=== PATIENT | male | born 1985 | race Caucasian/White ===

== ENCOUNTER → 2025-08-30 08:22 | Outpatient (CLI) | payer OTHER, SELFPAY ==
--- NOTE | 2025-08-30 08:25 | DI.CT.S_ITS ---
PROCEDURE: CT SOFT TISSUE NECK W CON INDICATIONS: Dysphagia TECHNIQUE: After the administration of intravenous contrast, 3.0 mm axial sections acquired from the sella to the aortic arch. Additional oblique axial 3.0 mm sections acquired through the pharynx. 3 mm thick coronal and sagittal reformats were generated. For radiation dose reduction, the following was used: automated exposure control. COMPARISON: None. FINDINGS: Skull Base: The visualized intracranial contents, skull, and orbits are unremarkable. 3 cm left maxillary sinus retention cyst Pharynx and Larynx: The nasopharyngeal airway is patent and midline. Parapharyngeal soft tissues including palatine tonsils and base of the tongue are normal. Retropharyngeal space unremarkable. Normal appearance of the false and true vocal cords. Muscles and Fascial Planes: Fascial planes are well maintained. No abscess or mass lesion. Lymph Nodes: Prominent nonenlarged deep cervical lymph nodes measure up to 7 mm short axis Vasculature: Unremarkable. Submandibular and Parotid Glands: Normal in size and attenuation. Thyroid: Unremarkable. No enlarged or calcified nodules. Bones: No acute fracture. No osteolytic or blastic lesion is evident. Normal bone mineralization. Lung Apices: The visualized lung apices are clear. IMPRESSION: Prominent but nonenlarged bilateral deep cervical lymph nodes. No adenopathy. Left maxillary sinus retention cyst Approved by: Ej Pastrana M.D. on 08/31/2025 at 15:45
== END ==
LOC: CT 08:24
DX: R13.10 Dysphagia, unspecified (principal); H93.299 Other abnormal auditory perceptions, unspecified ear; J34.1 Cyst and mucocele of nose and nasal sinus
CPT/HCPCS: 70491; Q9967

== ENCOUNTER → 2025-08-30 08:25 | Outpatient (CLI) | payer OTHER, SELFPAY ==
--- NOTE | 2025-08-30 08:26 | DI.RAD.S_ITS ---
PROCEDURE: FL BARIUM SWALLOW INDICATIONS: Dysphagia COMPARISON: None. FINDINGS: Function: There is normal esophageal peristalsis. No elicited gastroesophageal reflux. There is normal transit of a calibrated barium tablet through the esophagus into the stomach. Morphology: Air-contrast images demonstrate normal mucosal morphology. Single contrast views show no esophageal strictures, extrinsic mass effects, or diverticula. Limited images of the stomach demonstrate normal appearance. IMPRESSION: Normal study. Dictated by: Salty Peña M.D. on 08/30/2025 at 12:12 Approved by: Salty Peña M.D. on 08/30/2025 at 12:13
== END ==
LOC: RAD 08:26
PROVIDERS: Visit Provider Radiology Diagnostic Radiology
DX: R13.10 Dysphagia, unspecified (principal)
CPT/HCPCS: 70491; 74220; Q9967